=== PATIENT | male | born 1955 | race Two or more races ===

== ENCOUNTER 2019-01-17 10:12 | Day surgery (SDC) | payer MEDICAID ==
[~2019-01-17] VITALS: Ht 182.9 cm; Wt 91.6 kg
[2019-01-17] VITALS (9 sets, daily range): BP systolic 121–166; BP diastolic 68–107
[2019-01-17] MEDS ORDERED: Midazolam 2mg/2ml Inj ONE (10:13)
[2019-01-17] MEDS ORDERED: fentaNYL 100 mcg/2 mL IV ONE (10:13)
--- NOTE | 2019-01-17 12:11 | Short Stay Surgery H&P ---
History of Present Illness History of Present Illness Chief Complaint see recent office note HPI Krishna Horvath is a 63 year old male who was admitted on for Rectal Bleed , Colon Cancer,Hemorrhoid Patient History Allergies: Uncoded Allergies: bee sting (Allergy, Intermediate, swelling, 01/17/19) Physical Exam Vital Signs Last Vital Signs Date Time Temp Pulse Resp B/P (MAP) Pulse Ox O2 Delivery O2 Flow Rate FiO2 01/17/19 11:05 Room Air 01/17/19 10:57 97.0 79 18 121/68 98 Plan Attestation Are the patient's medical conditions optimized for surgery? Eh Caceres MD Jan 17, 2019 12:11
--- NOTE | 2019-01-17 12:12 | Pre-Procedure Note/Attestation ---
Pre-Procedure Note/Attestation Complete Prior to Procedure Planned Procedure: not applicable Procedure Narrative: flex + banding Indications for Procedure Pre-Operative Diagnosis: hemorrhoids Attestation I attest that I discussed the nature of the procedure; its benefits; risks and complications; and alternatives (and the risks and benefits of such alternatives ), prior to the procedure, with the patient (or the patient's legal claim representative). I attest that, if there was a reasonable possibility of needing a blood transfusion, the patient (or the patient's legal claim representative) was given the [facility] standardized written summary, pursuant to the [place]iyah Blood Safety Act ([place] Health and Safety Code # 1645, as amended). I attest that I re-evaluated the patient just prior to the surgery and that there has been no change in the patient's H&P, except as documented below: Eh Caceres MD Jan 17, 2019 12:12
[2019-01-17] MEDS ORDERED: METFORMIN HCL500 M1 ORAL (12:13)
[2019-01-17] MEDS ORDERED: PROTONIX40 MG ORAL (12:14)
[2019-01-17] MEDS ORDERED: Propofol 200mg/20ml IV ONE (12:16)
[2019-01-17] MEDS ORDERED: VITAMIN D250000 UNI1 ORAL (12:16)
[2019-01-17] MEDS ORDERED: LR 1000ml ONE (12:16)
[2019-01-17] MEDS ORDERED: MIRALAX17 G2 ORAL (12:17)
[2019-01-17] MEDS ORDERED: HEMORRHOIDAL CR51 G1 RC (12:20)
--- NOTE | 2019-01-17 12:43 | Endoscopy Procedure Note ---
Endoscopy Procedure Note General Indication for Procedure: hemorrhoids Procedures Performed: flexible sigmoidoscopy Operative Findings/Diagnosis: banding X4 Specimen: none Pt Tolerated Procedure Well: Yes Estimated Blood Loss: none Anesthesia Anesthesiologist: jose Anesthesia: MAC Inserted Devices Implant(s) used?: No GI Core Measures 50 yrs or older w/o bx or poly: Not Applicable 10yrs. F/U not recommended: Not Applicable Eh Caceres MD Jan 17, 2019 12:43
--- NOTE | 2019-01-17 12:58 | Anethesia Preoperative Eval ---
Anesthesia Pre-op PMH/ROS General Date of Evaluation: Jan 17, 2019 Time of Evaluation: 12:10 Anesthesiologist: Jevon ASA Score: ASA 3 Mallampati Score Class I : Soft palate, uvula, fauces, pillars visible Class II: Soft palate, uvula, fauces visible Class III: Soft palate, base of uvula visible Class IV: Only hard plate visible Mallampati Classification: Class II Surgeon: Morris Diagnosis: Rectal bleed Surgical Procedure: Sigmoidoscopy internal hemorrhoids banding Anesthesia History: none Social History: smoking - h/o Family History: no anesthesia problems Allergies: Uncoded Allergies: bee sting (Allergy, Intermediate, swelling, 01/17/19) Medications: see eMAR Patient NPO?: Yes Past Medical History Cardiovascular: Reports: HTN - mild; Denies: CAD, MA, valve dz, arrhythmia, other Pulmonary: Denies: asthma, COPD, SUBHA, other Gastrointestinal/Genitourinary: Reports: GERD, other - Colon CA s/p Sx on chemo ; Denies: CRI, ESRD Neurologic/Psychiatric: Reports: depression/anxiety; Denies: dementia, CVA, TIA, other Endocrine: Reports: DM; Denies: hypothyroidism, steroids, other HEENT: Denies: cataract (L), cataract (R), glaucoma, [place] (L), [place] [place] (R), other Hematology/Immune: Reports: anemia - mild; Denies: DVT, bleeding disorder, other Musculoskeletal/Integumentary: Denies: OA, RA, DJD, DDD, edema, other PMH Narrative: as above PSxH Narrative: Partial colectomy, infusa port placement Anesthesia Pre-op Phys. Exam Physician Exam Last Vital Signs Date Time Temp Pulse Resp B/P (MAP) Pulse Ox O2 Delivery O2 Flow Rate FiO2 01/17/19 12:50 77 21 147/107 100 Nasal Cannula 3 01/17/19 12:49 98.8 Constitutional: NAD Neurologic: CN 2-12 intact Cardiovascular: RRR, no M/R/G Respiratory: CTA Gastrointestinal: S/NT/ND Airway Exam Mallampati Score: Class II MO: limited Teeth: missing Dentures: no upper, no lower Anesthesia Pre-op A/P Risk Assessment & Plan Assessment: ASA 3 Plan: MAC Status Change Before Surgery: No Pre-Antibiotics Drug: none Francisco Escoto MD Jan 17, 2019 12:58
--- NOTE | 2019-01-17 13:00 | Immediate Post-Op Evaluation ---
Immediate Post-Op Evalulation Immediate Post-Op Evalulation Procedure: Sigmoidoscopy internal hemorrhoids bending Date of Evaluation: Jan 17, 2019 Time of Evaluation: 12:52 IV Fluids: 300 Blood Products: none Estimated Blood Loss: min Urinary Output: none Blood Pressure Systolic: 148 Blood Pressure Diastolic: 78 Pulse Rate: 82 Respiratory Rate: 20 O2 Sat by Pulse Oximetry: 99 Temperature (Fahrenheit): 97.8 Pain Score (1-10): 2 Nausea: No Vomiting: No Complications none Patient Status: reacts, patent, none Hydration Status: adequate Frnacisco Escoto MD Jan 17, 2019 13:00
--- NOTE | 2019-01-17 13:01 | 48 Hour Post Anesthesia Eval ---
Post Anesthesia Evaluation Procedure: Sigmoidoscopy internal hemorrhoids bending Date of Evaluation: Jan 17, 2019 Time of Evaluation: 13:00 Blood Pressure Systolic: 152 0: 86 Pulse Rate: 78 Respiratory Rate: 18 Temperature (Fahrenheit): 97.6 O2 Sat by Pulse Oximetry: 98 Airway: patent Nausea: No Vomiting: No Pain Intensity: 2 Hydration Status: adequate Cardiopulmonary Status: stable Mental Status/LOC: patient returned to baseline Follow-up Care/Observations: n/a Post-Anesthesia Complications: none Follow-up care needed: ready to discharge Francisco Escoto MD Jan 17, 2019 13:01
--- NOTE | 2019-01-17 20:45 | Procedure Note ---
DATE OF PROCEDURE: 01/17/2019 SURGEON: Eh Caceres M.D. REFERRING PHYSICIAN: Beau Leung M.D. PROCEDURE: Flexible sigmoidoscopy with banding x4 of the internal hemorrhoids. ANESTHESIA: Per Dr. Esctoo. INSTRUMENT: The procedure, risks, benefits, and possible consequences, including hemorrhage, aspiration, perforation and infection, and alternative treatments, were explained to the patient/legal guardian by Dr. Eh Caceres and the patient/legal guardian understood and accepted these risks. DESCRIPTION OF PROCEDURE: First, rectal examination was performed, which was positive for internal hemorrhoids. Then, the scope was advanced from the rectum into the sigmoid colon. The prep was poor. We washed the rectum so we can do the banding. There were multiple large internal hemorrhoids. At this time, the was retrieved, banding device was placed, and a total of 4 bands were placed in the rectal varices without any complication. SUMMARY OF FINDINGS: Status post successful banding of the four internal hemorrhoids. RECOMMENDATIONS: Colace and MiraLAX. Pain control. Follow in the office in 1 or 2 weeks. I want to thank Dr. Beau Leung for this kind referral. Eh Caceres M.D. DR: Kevin JOB#: [id number] CC: Beau Leung M.D.
== END 2019-01-17 14:20 | disposition home or self-care (01) ==
LOC: GAS 10:12
DX: K64.8 Other hemorrhoids (principal); I10 Essential (primary) hypertension; K21.9 Gastro-esophageal reflux disease without esophagitis; Z85.038 Personal history of other malignant neoplasm of large intestine; F32.9 Major depressive disorder, single episode, unspecified; F41.9 Anxiety disorder, unspecified; E11.9 Type 2 diabetes mellitus without complications; D64.9 Anemia, unspecified; Z90.49 Acquired absence of other specified parts of digestive tract
CPT/HCPCS: 45350; 82962; J2250; J2704; J3010; Z7512; 94003; 94150